=== PATIENT | male | born 1960 | race Caucasian/White ===

== ENCOUNTER 2017-10-17 02:05 | Emergency (ER) | payer MEDICAID ==
[~2017-10-17] VITALS: Ht 182.9 cm; Wt 74.4 kg
[2017-10-17 02:13] VITALS: BP 164/88
[2017-10-17] MEDS ORDERED: Albuterol/Ipratropium 3ml neb HHN ONE (02:30)
--- NOTE | 2017-10-17 04:23 | Emergency Room Report ---
History of Present Illness General Chief Complaint: Alcohol Intoxication Source: Patient, EMS Present Illness HPI Patient is a 57-year-old male brought in by EMS after increased alcohol use. Patient had reported increased pain to his left upper extremity. He denies any current complaints. The patient states he was drinking heavily earlier in day. He had prior history of multiple surgeries. The patient does not recall any recent trauma Allergies: Coded Allergies: No Known Allergies (Unverified , 10/17/17) Patient History Past Medical History: see triage record Reviewed Nursing Documentation: PMH: Agreed, PSxH: Agreed Review of Systems All Other Systems: negative except mentioned in HPI Physical Exam Vital Signs Date Time Temp Pulse Resp B/P (MAP) Pulse Ox O2 Delivery O2 Flow Rate FiO2 10/17/17 02:06 98.1 96 18 164/88 99 Room Air 98.1 10/17/17 02:40 21 Sp02 EP Interpretation: reviewed, normal General Appearance: normal inspection, well appearing, no apparent distress, alert, GCS 15 Head: atraumatic Eyes: bilateral eye PERRL, bilateral eye other - left eyelid bruising ENT: normal ENT inspection, hearing grossly normal, normal voice Neck: normal inspection, full range of motion, supple, no bony tend Respiratory: normal inspection, no respiratory distress, no retraction, wheezing Cardiovascular #1: regular rate, rhythm, no edema Gastrointestinal: normal inspection, normal bowel sounds, non tender, soft, no guarding, no hernia Genitourinary: no CVA tenderness Musculoskeletal: normal inspection, back normal, normal range of motion Neurologic: normal inspection, alert, oriented x3, responsive, 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 differential diagnosis included but was not limited to ischemic stroke, subarachnoid hemorrhage, hypoglycemia, spinal cord injury, neurodegenerative disorder, urinary tract infection, hypoxemia. CT the head read by radiology showed post surgical changes and chronic sinusitis without evident intracranial hemorrhage or CVA. The patient is advised to follow up with primary care doctor in 1-2 days. Patient is advised to return if any worsening condition or if any changes in status that are concerning. This report is dictated with Dragon director music software which may occasionally lead to discrepancies related to use of this software. Last Vital Signs Date Time Temp Pulse Resp B/P (MAP) Pulse Ox O2 Delivery O2 Flow Rate FiO2 10/17/17 03:11 130 18 98 Room Air 21 10/17/17 02:13 98.1 164/88 98.1 Status: improved Disposition: HOME, SELF-CARE Condition: Stable Referrals: NOT CHOSEN IPA/,REFERRING (PCP) Mil Richard Oct 17, 2017 04:23
[2017-10-17 04:50] VITALS: BP 99/58
[2017-10-17 06:12] VITALS: BP 133/78
[2017-10-17 07:55] VITALS: BP_SYST 128; BP_SYST 133; BP_DIAS 75; BP_DIAS 78
--- NOTE | 2017-10-17 09:41 | Diagnostic Imaging Report ---
Indication: Headache Technique: Contiguous 5 mm thick transaxial imaging of the head obtained in a Siemens Sensation [address] scanner. Soft tissue and bone windows generated. Automatic Exposure Control was utilized. Total Dose length Product (DLP): 1432.[address] Dose Index Volume (CTDIvol): 70.38 mGy Comparison: none Findings: There is moderate prominence of the ventricles, basal cisterns, and cerebral sulci consistent with atrophy. Moderate, nonspecific, white matter hypoattenuation is noted throughout the brain consistent with chronic small vessel disease. There is a right-sided large craniotomy noted. There is mild encephalomalacia involving portions of the right frontal temporal and parietal lobes. There is no midline shift, edema, acute hemorrhage, mass effect, or abnormal extra-axial fluid collections. Bones and extra osseous soft tissues are unremarkable. Impression: No acute intracranial bleed, mass effect or edema. Large right craniotomy Moderate atrophy of the brain. Evidence of chronic small vessel disease involving white matter tracts. [facility] has communicated the preliminary results to the Emergency Department. Their findings are largely concordant with this report. The CT scanner at [facility] is accredited by the [employer] and the scans are performed using dose optimization techniques as appropriate to a performed exam including Automatic Exposure control.
[2017-11-16] MEDS ORDERED: MULTIVITAMINS1 EAC2 ORAL (15:24)
== END 2017-10-17 07:55 | disposition home or self-care (01) ==
LOC: EDBD 02:05 → EMR 02:28
DX: F10.229 Alcohol dependence with intoxication, unspecified (principal); J32.9 Chronic sinusitis, unspecified
CPT/HCPCS: 70450; 94640; 94664; 99284; J7620

== ENCOUNTER 2017-11-16 15:28 | Inpatient (IN) | payer MEDICAID ==
[~2017-11-16] VITALS: Ht 182.9 cm; Wt 72.1 kg
[~2017-11-16 15:28] MED LIST: MULTIVITAMINS1 EAC2 ORAL
[2017-11-16] MEDS ORDERED: LORazepam Inj 2mg/ml 1ml IV ONE (15:45)
[2017-11-16] MEDS ORDERED: Pantoprazole Inj IVP ONE (15:45)
--- NOTE | 2017-11-16 15:54 | Emergency Room Report ---
History of Present Illness General Chief Complaint: Gastrointestinal Bleed Source: Patient, EMS Present Illness HPI Patient is a 57-year-old male brought in by EMS after increased hematemesis. Patient reports having increased cough. He states that he had been vomiting approximately 1 ft.. Reports having some bloody emesis.Patient was having prior history of cirrhosis. He has reported a dark blood. Allergies: Coded Allergies: CODEINE (Unverified Allergy, Unknown, 11/16/17) Patient History Past Medical History: see triage record Reviewed Nursing Documentation: PMH: Agreed; PSxH: Agreed Nursing Documentation-PMH Past Medical History: No History, Except For Hx Gastrointestinal Problems: Yes - CIRRHOSIS, HEP C. Physical Exam Vital Signs Date Time Temp Pulse Resp B/P (MAP) Pulse Ox O2 Delivery O2 Flow Rate FiO2 11/16/17 15:18 98.1 113 20 129/70 100 Room Air 98.1 Sp02 EP Interpretation: reviewed, normal General Appearance: normal inspection, well appearing, no apparent distress, alert, GCS 15, Chronically Ill Head: atraumatic ENT: normal ENT inspection, hearing grossly normal, normal voice Neck: normal inspection, full range of motion, supple, no bony tend Respiratory: normal inspection, lungs clear, normal breath sounds, no respiratory distress, no retraction, no wheezing Cardiovascular #1: regular rate, rhythm, no edema Gastrointestinal: normal inspection, normal bowel sounds, non tender, soft, no guarding, no hernia Genitourinary: no CVA tenderness Musculoskeletal: normal inspection, back normal, normal range of motion Neurologic: normal inspection, alert, oriented x3, responsive, speech normal Psychiatric: normal inspection, judgement/insight normal, mood/affect normal Skin: normal inspection, normal color, no rash Medical Decision Making Diagnostic Impression: Primary Impression: UGI bleed Additional Impressions: Anemia Alcoholic cirrhosis ER Course Patient is a 37-year-old male brought in by EMS after increased hematemesis. Differential diagnosis included was not limited to ulcer, variceal bleed, anemia , coagulopathy among others.Because of complexity of patient's case laboratory testing and imaging studies were ordered. The laboratory testing was notable for evidence of anemia. Patient was also noted to be somewhat Thrombocytopenic. The patient was started on IV acid blockers. The patient was given IV Ativan for probable alcohol withdrawal.Dr. Espana was contacted for inpatient management due to complexity of medical condition. The patient will require GI consult. The patient appears to have chronic alcohol abuse as well. Labs Test 11/16/17 16:05 White Blood Count 4.6 K/UL (4.8-10.8) Red Blood Count 3.00 M/UL (4.70-6.10) Hemoglobin 8.2 G/DL (14.2-18.0) Hematocrit 26.3 % (42.0-52.0) Mean Corpuscular Volume 88 FL (80-99) Mean Corpuscular Hemoglobin 27.5 PG (27.0-31.0) Mean Corpuscular Hemoglobin Concent 31.3 G/DL (32.0-36.0) Red Cell Distribution Width 20.2 % (11.6-14.8) Platelet Count 88 K/UL (150-450) Mean Platelet Volume 8.9 FL (6.5-10.1) Neutrophils (%) (Auto) % (45.0-75.0) Lymphocytes (%) (Auto) % (20.0-45.0) Monocytes (%) (Auto) % (1.0-10.0) Eosinophils (%) (Auto) % (0.0-3.0) Basophils (%) (Auto) % (0.0-2.0) Differential Total Cells Counted 100 Neutrophils % (Manual) 61 % (45-75) Lymphocytes % (Manual) 31 % (20-45) Monocytes % (Manual) 8 % (1-10) Eosinophils % (Manual) 0 % (0-3) Basophils % (Manual) 0 % (0-2) Band Neutrophils 0 % (0-8) Platelet Estimate Decreased Platelet Morphology Normal Hypochromasia 2+ Anisocytosis 1+ Microcytosis 1+ Prothrombin Time 14.1 SEC (9.30-11.50) Prothromb Time International Ratio 1.3 (0.9-1.1) Activated Partial Thromboplast Time 33 SEC (23-33) Sodium Level 142 MMOL/L (136-145) Potassium Level 3.9 MMOL/L (3.5-5.1) Chloride Level 106 MMOL/L (98-107) Carbon Dioxide Level 26 MMOL/L (21-32) Anion Gap 10 mmol/L (5-15) Blood Urea Nitrogen 17 mg/dL (7-18) Creatinine 0.8 MG/DL (0.55-1.30) Estimat Glomerular Filtration Rate > 60 mL/min (>60) Glucose Level 112 MG/DL (74-106) Calcium Level 7.7 MG/DL (8.5-10.1) Total Bilirubin 0.9 MG/DL (0.2-1.0) Aspartate Amino Transf (AST/SGOT) 153 U/L (15-37) Alanine Aminotransferase (ALT/SGPT) 60 U/L (12-78) Alkaline Phosphatase 104 U/L (46-116) Total Protein 7.1 G/DL (6.4-8.2) Albumin 2.7 G/DL (3.4-5.0) Globulin 4.4 g/dL Albumin/Globulin Ratio 0.6 (1.0-2.7) Last Vital Signs Date Time Temp Pulse Resp B/P (MAP) Pulse Ox O2 Delivery O2 Flow Rate FiO2 11/16/17 15:18 98.1 113 20 129/70 100 Room Air 98.1 Status: unchanged Disposition: ADMITTED INPATIENT Condition: Serious Mil Richard Nov 16, 2017 15:54
[2017-11-16 16:05] VITALS: BP 115/76
[2017-11-16 16:27] LABS: HEMATOCRIT 26.3 % (42.0-52.0); HEMOGLOBIN 8.2 G/DL (14.2-18.0); MEAN CORPUSCULAR VOLUME 88 FL (80-99); PLATELET COUNT 88 K/UL (150-450); RED CELL DISTRIBUTION WIDTH 20.2 % (11.6-14.8); WHITE BLOOD COUNT 4.6 K/UL (4.8-10.8)
[2017-11-16 16:31] LABS: ANION GAP 10 mmol/L (5-15); BLOOD UREA NITROGEN 17 mg/dL (7-18); CALCIUM 7.7 MG/DL (8.5-10.1); CARBON DIOXIDE 26 MMOL/L (21-32); CHLORIDE 106 MMOL/L (98-107); CREATININE 0.8 MG/DL (0.55-1.30); INR 1.3 (0.9-1.1); POTASSIUM 3.9 MMOL/L (3.5-5.1); SODIUM 142 MMOL/L (136-145)
[2017-11-16 16:36] LABS: ALANINE AMINOTRANSFERASE 60 U/L (12-78); ALBUMIN 2.7 G/DL (3.4-5.0); ALBUMIN/GLOBULIN RATIO 0.6 (1.0-2.7); ALKALINE PHOSPHATASE 104 U/L (46-116); ASPARTATE AMINO TRANSFERASE 153 U/L (15-37); BILIRUBIN,TOTAL 0.9 MG/DL (0.2-1.0)
[2017-11-16] MEDS ORDERED: SandoSTATIN 50mcg Inj IVP ONE (17:30)
[2017-11-16 18:10] VITALS: BP 117/71
[2017-11-16] MEDS ORDERED: Nitroglycerin Subl 0.4mg tab SL PRN (19:45)
[2017-11-16] MEDS ORDERED: Mylanta II UD 30ml ORAL PRN (19:45)
[2017-11-16] MEDS ORDERED: Miralax 17gm pkt ORAL PRN (19:45)
[2017-11-16 21:55] VITALS: BP 122/60
--- NOTE | 2017-11-16 22:55 | History and Physical ---
History of Present Illness General Date patient seen: Nov 16, 2017 Reason for Hospitalization: Gastrointestinal Bleed Present Illness HPI 57-year-old male with hx of ETOH liver disease brought in by EMS with CC of hematemesis. Patient reports having increased cough. He has reported a dark bloody stool. Pt was found to be anemic and admitted for telemetry for further management. Allergies: Coded Allergies: CODEINE (Unverified Allergy, Unknown, 11/16/17) Medication History Scheduled Multivitamins* (Multivitamins*), 1 TAB ORAL DAILY, (Reported) Patient History Healthcare decision maker Resuscitation status Advanced Directive on File Past Medical/Surgical History Past Medical/Surgical History: (1) Alcoholic cirrhosis Review of Systems All Other Systems: negative except mentioned in HPI Physical Exam General Appearance: cachetic Lines, tubes and drains: peripheral HEENT: normocephalic, atraumatic Neck: non-tender, normal alignment Respiratory/Chest: chest wall non-tender, lungs clear Breasts: no masses Cardiovascular/Chest: normal rate Abdomen: normal bowel sounds, non tender Genitourinary/Rectal: normal genital exam Extremities: normal range of motion, non-tender Skin Exam: normal pigmentation 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 Lymphatic: anterior cervical Last 24 Hour Vital Signs Date Time Temp Pulse Resp B/P (MAP) Pulse Ox O2 Delivery O2 Flow Rate FiO2 11/16/17 21:55 74 22 122/60 94 Room Air 11/16/17 18:10 98.5 95 20 117/71 95 Room Air 98.5 11/16/17 16:05 98.1 105 18 115/76 100 Room Air 98.1 11/16/17 15:18 98.1 113 20 129/70 100 Room Air 98.1 Laboratory Tests Test 11/16/17 16:05 White Blood Count 4.6 K/UL (4.8-10.8) L Red Blood Count 3.00 M/UL (4.70-6.10) L Hemoglobin 8.2 G/DL (14.2-18.0) L Hematocrit 26.3 % (42.0-52.0) L Mean Corpuscular Volume 88 FL (80-99) Mean Corpuscular Hemoglobin 27.5 PG (27.0-31.0) Mean Corpuscular Hemoglobin Concent 31.3 G/DL (32.0-36.0) L Red Cell Distribution Width 20.2 % (11.6-14.8) H Platelet Count 88 K/UL (150-450) L Mean Platelet Volume 8.9 FL (6.5-10.1) Neutrophils (%) (Auto) % (45.0-75.0) Lymphocytes (%) (Auto) % (20.0-45.0) Monocytes (%) (Auto) % (1.0-10.0) Eosinophils (%) (Auto) % (0.0-3.0) Basophils (%) (Auto) % (0.0-2.0) Differential Total Cells Counted 100 Neutrophils % (Manual) 61 % (45-75) Lymphocytes % (Manual) 31 % (20-45) Monocytes % (Manual) 8 % (1-10) Eosinophils % (Manual) 0 % (0-3) Basophils % (Manual) 0 % (0-2) Band Neutrophils 0 % (0-8) Platelet Estimate Decreased L Platelet Morphology Normal Hypochromasia 2+ Anisocytosis 1+ Microcytosis 1+ Prothrombin Time 14.1 SEC (9.30-11.50) H Prothromb Time International Ratio 1.3 (0.9-1.1) H Activated Partial Thromboplast Time 33 SEC (23-33) Sodium Level 142 MMOL/L (136-145) Potassium Level 3.9 MMOL/L (3.5-5.1) Chloride Level 106 MMOL/L (98-107) Carbon Dioxide Level 26 MMOL/L (21-32) Anion Gap 10 mmol/L (5-15) Blood Urea Nitrogen 17 mg/dL (7-18) Creatinine 0.8 MG/DL (0.55-1.30) Estimat Glomerular Filtration Rate > 60 mL/min (>60) Glucose Level 112 MG/DL (74-106) H Calcium Level 7.7 MG/DL (8.5-10.1) L Total Bilirubin 0.9 MG/DL (0.2-1.0) Aspartate Amino Transf (AST/SGOT) 153 U/L (15-37) H Alanine Aminotransferase (ALT/SGPT) 60 U/L (12-78) Alkaline Phosphatase 104 U/L (46-116) Total Protein 7.1 G/DL (6.4-8.2) Albumin 2.7 G/DL (3.4-5.0) L Globulin 4.4 g/dL Albumin/Globulin Ratio 0.6 (1.0-2.7) L Height (Feet): 5 Height (Inches): 5.00 Weight (Pounds): 165 Medications Current Medications Medications (Trade) Dose Ordered Sig/Lazaro Route PRN Reason Start Time Stop Time Status Last Admin Dose Admin Acetaminophen (Tylenol) 650 mg Q4H PRN ORAL fever 11/16/17 19:45 12/16/17 19:44 Al Hydroxide/Mg Hydroxide (Mylanta II) 30 ml Q6H PRN ORAL dyspepsia 11/16/17 19:45 12/16/17 19:44 Dextrose (Dextrose 50%) STAT PRN IV Hypoglycemia 11/16/17 19:45 12/16/17 19:44 Dextrose/Sodium Chloride 1,000 ml @ 100 mls/hr Q10H IV 11/16/17 19:36 12/16/17 19:35 Diphenhydramine HCl (Benadryl) 25 mg Q6H PRN ORAL Itching/Pruritis 11/16/17 19:45 12/16/17 19:44 Nitroglycerin (Ntg) 0.4 mg Q5M X 3 DOSES PRN SL Prn Chest Pain 11/16/17 19:45 12/16/17 19:44 Ondansetron HCl (Zofran) 4 mg Q6H PRN IVP Nausea & Vomiting 11/16/17 19:45 12/16/17 19:44 Phytonadione 10 mg/Dextrose 56 ml @ 110 mls/hr ONCE ONCE IVPB 11/16/17 23:00 11/16/17 23:30 Polyethylene Glycol (Miralax) 17 gm HSPRN PRN ORAL Constipation 11/16/17 19:45 12/16/17 19:44 Temazepam (Restoril) 15 mg HSPRN PRN ORAL Insomnia 11/16/17 19:45 11/23/17 19:44 Assessment/Plan Problem List: (1) UGI bleed ICD Codes: K92.2 - Gastrointestinal hemorrhage, unspecified SNOMED: 88200637 (2) Alcoholic cirrhosis ICD Codes: K70.30 - Alcoholic cirrhosis of liver without ascites SNOMED: 531020857 (3) Anemia ICD Codes: D64.9 - Anemia, unspecified SNOMED: 632852410 Assessment/Plan npo iv fluids prbc prn watch pt inr GI evaluation avoid etoh. Lisa Espana MD Nov 16, 2017 22:55
[2017-11-16 23:00] VITALS: BP 128/68
[2017-11-16] MEDS ORDERED: Phytonadione 10 MG in D5W 55 ML IVPB ONE (23:00)
[2017-11-17] VITALS (10 sets, daily range): BP systolic 136–157; BP diastolic 56–90
[2017-11-17] MEDS ORDERED: Octreotide Acetate 500 MCG in Sodium Chloride 500ML 499 ML IV SCH (00:45)
[2017-11-17] MEDS: D5NS 1,000 ML IV SCH ×3 (01:15→14:13)
[2017-11-17] MEDS ORDERED: Phytonadione 10 mg/mL 1ml amp ONE (01:32)
[2017-11-17] MEDS: Pantoprazole Inj IVP SCH ×3 (01:51→21:14)
[2017-11-17] MEDS ORDERED: OCTREOTIDE ACETATE IV SCH (02:30)
[2017-11-17] MEDS ORDERED: SODIUM CHLORIDE IV SCH (02:30)
[2017-11-17] MEDS: Sandostatin 500mcg in NS 500ml IV SCH ×3 (02:53→23:15)
[2017-11-17] MEDS ORDERED: Midazolam 2mg/2ml Inj IVP PRN ×2 (07:00→10:45)
[2017-11-17] MEDS ORDERED: fentaNYL 100 mcg/2 mL IV PRN ×2 (07:00→10:45)
[2017-11-17] MEDS ORDERED: Atropine Inj 1mg/10ml Syr IV PRN ×2 (07:00→10:45)
[2017-11-17] MEDS ORDERED: DiphenhydrAMINE 50mg/ml Inj IVP PRN ×2 (07:00→10:45)
[2017-11-17 09:24] LABS: HEMATOCRIT 26.5 % (42.0-52.0); HEMOGLOBIN 8.2 G/DL (14.2-18.0); MEAN CORPUSCULAR VOLUME 88 FL (80-99); PLATELET COUNT 57 K/UL (150-450); RED CELL DISTRIBUTION WIDTH 20.2 % (11.6-14.8); WHITE BLOOD COUNT 4.3 K/UL (4.8-10.8)
[2017-11-17 09:30] LABS: INR 1.3 (0.9-1.1)
[2017-11-17] MEDS ORDERED: Phytonadione 1 MG in D5W 55 ML IVPB ONE (09:30)
[2017-11-17 09:54] LABS: ALANINE AMINOTRANSFERASE 64 U/L (12-78); ALBUMIN 2.7 G/DL (3.4-5.0); ALBUMIN/GLOBULIN RATIO 0.6 (1.0-2.7); ALKALINE PHOSPHATASE 87 U/L (46-116); AMYLASE 78 U/L (25-115); ANION GAP 5 mmol/L (5-15); ASPARTATE AMINO TRANSFERASE 167 U/L (15-37); BILIRUBIN,DIRECT 0.8 MG/DL (0.0-0.3); BILIRUBIN,TOTAL 1.4 MG/DL (0.2-1.0); BLOOD UREA NITROGEN 12 mg/dL (7-18); CALCIUM 7.4 MG/DL (8.5-10.1); CARBON DIOXIDE 29 MMOL/L (21-32); CHLORIDE 107 MMOL/L (98-107); CREATININE 0.9 MG/DL (0.55-1.30); SODIUM 141 MMOL/L (136-145)
--- NOTE | 2017-11-17 10:31 | Anethesia Preoperative Eval ---
Anesthesia Pre-op PMH/ROS General Date of Evaluation: Nov 17, 2017 Time of Evaluation: 10:28 Anesthesiologist: devorah ASA Score: ASA 3 Mallampati Score Class I : Soft palate, uvula, fauces, pillars visible Class II: Soft palate, uvula, fauces visible Class III: Soft palate, base of uvula visible Class IV: Only hard plate visible Mallampati Classification: Class II Surgeon: marlen Diagnosis: ugib Surgical Procedure: egd Anesthesia History: none Social History: current smoker, alcohol use Family History: no anesthesia problems Allergies: Coded Allergies: CODEINE (Unverified Allergy, Unknown, 11/16/17) Medications: see eMAR Past Medical History Gastrointestinal/Genitourinary: Reports: other - ugib, etoh cirrhosis, hep c, Neurologic/Psychiatric: Reports: CVA Hematology/Immune: Reports: anemia, other - mrsa Musculoskeletal/Integumentary: Reports: other - ble fractures/prosthesis Anesthesia Pre-op Phys. Exam Physician Exam Last Vital Signs Date Time Temp Pulse Resp B/P (MAP) Pulse Ox O2 Delivery O2 Flow Rate FiO2 11/17/17 08:00 98.2 97 20 157/87 97 Room Air 98.2 Constitutional: NAD Neurologic: CN 2-12 intact Cardiovascular: RRR Respiratory: CTA Gastrointestinal: S/NT/ND Airway Exam Mallampati Score: Class II MO: full Neck: supple TMD: 2fb ROM: limited Anesthesia Pre-op A/P Labs Hematology Test 11/16/17 16:05 11/17/17 09:00 White Blood Count 4.6 K/UL (4.8-10.8) L 4.3 K/UL (4.8-10.8) L Red Blood Count 3.00 M/UL (4.70-6.10) L 3.00 M/UL (4.70-6.10) L Hemoglobin 8.2 G/DL (14.2-18.0) L 8.2 G/DL (14.2-18.0) L Hematocrit 26.3 % (42.0-52.0) L 26.5 % (42.0-52.0) L Mean Corpuscular Volume 88 FL (80-99) 88 FL (80-99) Mean Corpuscular Hemoglobin 27.5 PG (27.0-31.0) 27.3 PG (27.0-31.0) Mean Corpuscular Hemoglobin Concent 31.3 G/DL (32.0-36.0) L 30.9 G/DL (32.0-36.0) L Red Cell Distribution Width 20.2 % (11.6-14.8) H 20.2 % (11.6-14.8) H Platelet Count 88 K/UL (150-450) L 57 K/UL (150-450) L Mean Platelet Volume 8.9 FL (6.5-10.1) 8.6 FL (6.5-10.1) Neutrophils (%) (Auto) % (45.0-75.0) % (45.0-75.0) Lymphocytes (%) (Auto) % (20.0-45.0) % (20.0-45.0) Monocytes (%) (Auto) % (1.0-10.0) % (1.0-10.0) Eosinophils (%) (Auto) % (0.0-3.0) % (0.0-3.0) Basophils (%) (Auto) % (0.0-2.0) % (0.0-2.0) Differential Total Cells Counted 100 100 Neutrophils % (Manual) 61 % (45-75) 65 % (45-75) Lymphocytes % (Manual) 31 % (20-45) 23 % (20-45) Monocytes % (Manual) 8 % (1-10) 12 % (1-10) H Eosinophils % (Manual) 0 % (0-3) 0 % (0-3) Basophils % (Manual) 0 % (0-2) 0 % (0-2) Band Neutrophils 0 % (0-8) 0 % (0-8) Platelet Estimate Decreased L Decreased L Platelet Morphology Normal Normal Hypochromasia 2+ 1+ Anisocytosis 1+ 2+ Microcytosis 1+ Polychromasia 1+ Coagulation Test 11/16/17 16:05 11/17/17 09:00 Prothrombin Time 14.1 SEC (9.30-11.50) H 13.3 SEC (9.30-11.50) H Prothromb Time International Ratio 1.3 (0.9-1.1) H 1.3 (0.9-1.1) H Activated Partial Thromboplast Time 33 SEC (23-33) 34 SEC (23-33) H Chemistry Test 11/16/17 16:05 11/17/17 09:00 Sodium Level 142 MMOL/L (136-145) 141 MMOL/L (136-145) Potassium Level 3.9 MMOL/L (3.5-5.1) 4.0 MMOL/L (3.5-5.1) Chloride Level 106 MMOL/L (98-107) 107 MMOL/L (98-107) Carbon Dioxide Level 26 MMOL/L (21-32) 29 MMOL/L (21-32) Anion Gap 10 mmol/L (5-15) 5 mmol/L (5-15) Blood Urea Nitrogen 17 mg/dL (7-18) 12 mg/dL (7-18) Creatinine 0.8 MG/DL (0.55-1.30) 0.9 MG/DL (0.55-1.30) Estimat Glomerular Filtration Rate > 60 mL/min (>60) > 60 mL/min (>60) Glucose Level 112 MG/DL (74-106) H 128 MG/DL (74-106) H Calcium Level 7.7 MG/DL (8.5-10.1) L 7.4 MG/DL (8.5-10.1) L Total Bilirubin 0.9 MG/DL (0.2-1.0) 1.4 MG/DL (0.2-1.0) H Aspartate Amino Transf (AST/SGOT) 153 U/L (15-37) H 167 U/L (15-37) H Alanine Aminotransferase (ALT/SGPT) 60 U/L (12-78) 64 U/L (12-78) Alkaline Phosphatase 104 U/L (46-116) 87 U/L (46-116) Total Protein 7.1 G/DL (6.4-8.2) 6.9 G/DL (6.4-8.2) Albumin 2.7 G/DL (3.4-5.0) L 2.7 G/DL (3.4-5.0) L Globulin 4.4 g/dL 4.2 g/dL Albumin/Globulin Ratio 0.6 (1.0-2.7) L 0.6 (1.0-2.7) L Direct Bilirubin 0.8 MG/DL (0.0-0.3) H Amylase Level 78 U/L (25-115) Lipase 131 U/L (73-393) Risk Assessment & Plan Assessment: asa3 Plan: mac Status Change Before Surgery: No Pre-Antibiotics Drug: SHERRILL Yeung Nov 17, 2017 10:31
--- NOTE | 2017-11-17 11:51 | Pulmonology Progress Note ---
Assessment/Plan Problems: (1) UGI bleed (2) Alcoholic cirrhosis (3) Anemia Assessment/Plan h/h stable check electrolytes for EGD today prbc prn iv fluids check electrolytes. Subjective ROS Limited/Unobtainable: No Constitutional: Reports: no symptoms HEENT: Repors: no symptoms Gastrointestinal/Abdominal: Reports: no symptoms Allergies: Coded Allergies: CODEINE (Unverified Allergy, Unknown, 11/16/17) Objective Last 24 Hour Vital Signs Date Time Temp Pulse Resp B/P (MAP) Pulse Ox O2 Delivery O2 Flow Rate FiO2 11/17/17 08:00 98.2 97 20 157/87 97 Room Air 98.2 11/17/17 06:15 97.8 108 20 136/68 96 Room Air 97.8 11/17/17 03:40 85 11/17/17 00:00 97 11/16/17 23:00 98.5 82 15 128/68 98 Room Air 98.5 11/16/17 23:00 82 15 128/68 98 Room Air 11/16/17 21:55 74 22 122/60 94 Room Air 11/16/17 18:10 98.5 95 20 117/71 95 Room Air 98.5 11/16/17 16:05 98.1 105 18 115/76 100 Room Air 98.1 11/16/17 15:18 98.1 113 20 129/70 100 Room Air 98.1 Intake and Output 11/16/17 11/17/17 19:00 07:00 Intake Total 0 ml 431.6 ml Balance 0 ml 431.6 ml Intake Oral 0 ml IV Total 431.6 ml # Voids 3 Objective General Appearance: cachetic Lines, tubes and drains: peripheral HEENT: normocephalic, atraumatic Neck: non-tender, normal alignment Respiratory/Chest: chest wall non-tender, lungs clear Breasts: no masses Cardiovascular/Chest: normal rate Abdomen: normal bowel sounds, non tender Genitourinary/Rectal: normal genital exam Extremities: normal range of motion, non-tender Skin Exam: normal pigmentation 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 Lymphatic: anterior cervical Laboratory Tests 11/16/17 16:05: White Blood Count 4.6L, Red Blood Count 3.00L, Hemoglobin 8.2L, Hematocrit 26.3L , Mean Corpuscular Volume 88, Mean Corpuscular Hemoglobin 27.5, Mean Corpuscular Hemoglobin Concent 31.3L, Red Cell Distribution Width 20.2H, Platelet Count 88L, Mean Platelet Volume 8.9, Neutrophils (%) (Auto) , Lymphocytes (%) (Auto) , Monocytes (%) (Auto) , Eosinophils (%) (Auto) , Basophils (%) (Auto) , Differential Total Cells Counted 100, Neutrophils % ( Manual) 61, Lymphocytes % (Manual) 31, Monocytes % (Manual) 8, Eosinophils % ( Manual) 0, Basophils % (Manual) 0, Band Neutrophils 0, Platelet Estimate DecreasedL, Platelet Morphology Normal, Hypochromasia 2+, Anisocytosis 1+, Microcytosis 1+, Prothrombin Time 14.1H, Prothromb Time International Ratio 1.3H , Activated Partial Thromboplast Time 33, Sodium Level 142, Potassium Level 3.9 , Chloride Level 106, Carbon Dioxide Level 26, Anion Gap 10, Blood Urea Nitrogen 17, Creatinine 0.8, Estimat Glomerular Filtration Rate > 60, Glucose Level 112H, Calcium Level 7.7L, Total Bilirubin 0.9, Aspartate Amino Transf (AST /SGOT) 153H, Alanine Aminotransferase (ALT/SGPT) 60, Alkaline Phosphatase 104, Total Protein 7.1, Albumin 2.7L, Globulin 4.4, Albumin/Globulin Ratio 0.6L 11/17/17 09:00: White Blood Count 4.3L, Red Blood Count 3.00L, Hemoglobin 8.2L, Hematocrit 26.5L , Mean Corpuscular Volume 88, Mean Corpuscular Hemoglobin 27.3, Mean Corpuscular Hemoglobin Concent 30.9L, Red Cell Distribution Width 20.2H, Platelet Count 57L, Mean Platelet Volume 8.6, Neutrophils (%) (Auto) , Lymphocytes (%) (Auto) , Monocytes (%) (Auto) , Eosinophils (%) (Auto) , Basophils (%) (Auto) , Differential Total Cells Counted 100, Neutrophils % ( Manual) 65, Lymphocytes % (Manual) 23, Monocytes % (Manual) 12H, Eosinophils % ( Manual) 0, Basophils % (Manual) 0, Band Neutrophils 0, Platelet Estimate DecreasedL, Platelet Morphology Normal, Hypochromasia 1+, Anisocytosis 2+, Prothrombin Time 13.3H, Prothromb Time International Ratio 1.3H, Activated Partial Thromboplast Time 34H, Sodium Level 141, Potassium Level 4.0, Chloride Level 107, Carbon Dioxide Level 29, Anion Gap 5, Blood Urea Nitrogen 12, Creatinine 0.9, Estimat Glomerular Filtration Rate > 60, Glucose Level 128H, Calcium Level 7.4L, Total Bilirubin 1.4H, Aspartate Amino Transf (AST/SGOT) 167H , Alanine Aminotransferase (ALT/SGPT) 64, Alkaline Phosphatase 87, Total Protein 6.9, Albumin 2.7L, Globulin 4.2, Albumin/Globulin Ratio 0.6L, Polychromasia 1+, Direct Bilirubin 0.8H, Amylase Level 78, Lipase 131 Current Medications Medications (Trade) Dose Ordered Sig/Lazaro Route PRN Reason Start Time Stop Time Status Last Admin Dose Admin Acetaminophen (Tylenol) 650 mg Q4H PRN ORAL fever 11/16/17 19:45 12/16/17 19:44 Al Hydroxide/Mg Hydroxide (Mylanta II) 30 ml Q6H PRN ORAL dyspepsia 11/16/17 19:45 12/16/17 19:44 Al Hydroxide/Mg Hydroxide (Mylanta) 15 ml Q1H PRN ORAL gi upset 11/17/17 07:00 11/17/17 13:00 Atropine Sulfate (Atropine) 0.5 mg Q5M PRN IV bpm less than 45 11/17/17 07:00 11/17/17 13:00 Dextrose (Dextrose 50%) STAT PRN IV Hypoglycemia 11/16/17 19:45 12/16/17 19:44 Dextrose/Sodium Chloride 1,000 ml @ 100 mls/hr Q10H IV 11/16/17 19:36 12/16/17 19:35 11/17/17 01:15 Diphenhydramine HCl (Benadryl) 25 mg Q15M PRN IVP Itching 11/17/17 07:00 11/17/17 13:00 Diphenhydramine HCl (Benadryl) 25 mg Q6H PRN ORAL Itching/Pruritis 11/16/17 19:45 12/16/17 19:44 Fentanyl Citrate (Sublimaze 100 mcg/2 mL) 25 mcg Q10M PRN IV Moderate Pain (Pain Scale 4-6) 11/17/17 10:45 11/17/17 16:00 Hydralazine HCl (Apresoline) 5 mg Q30M PRN IV SBP>160 /DBP>90 11/17/17 07:00 11/17/17 13:00 Midazolam HCl (Versed 2mg/2ml vial) 1 mg Q15M PRN IVP For Anxiety 11/17/17 10:45 11/17/17 16:00 Nitroglycerin (Ntg) 0.4 mg Q5M X 3 DOSES PRN SL Prn Chest Pain 11/16/17 19:45 12/16/17 19:44 Octreotide Acetate 500 mcg/ Sodium Chloride 500 ml @ 50 mls/hr Q10H IV 11/17/17 03:00 12/17/17 02:59 11/17/17 02:53 Ondansetron HCl (Zofran) 4 mg Q1H PRN IVP Nausea & Vomiting 11/17/17 10:45 11/17/17 16:00 Ondansetron HCl (Zofran) 4 mg Q6H PRN IVP Nausea & Vomiting 11/16/17 19:45 12/16/17 19:44 Pantoprazole (Protonix) 40 mg EVERY 12 HOURS IVP 11/17/17 00:45 12/17/17 00:44 11/17/17 08:32 Polyethylene Glycol (Miralax) 17 gm HSPRN PRN ORAL Constipation 11/16/17 19:45 12/16/17 19:44 Sodium Chloride 1,000 ml @ 10 mls/hr Q24H IVLG 11/17/17 10:33 11/17/17 12:32 Temazepam (Restoril) 15 mg HSPRN PRN ORAL Insomnia 11/16/17 19:45 11/23/17 19:44 Lisa Espana MD Nov 17, 2017 11:51
--- NOTE | 2017-11-17 11:51 | Pre-Procedure Note/Attestation ---
Pre-Procedure Note/Attestation Complete Prior to Procedure Planned Procedure: not applicable Procedure Narrative: egd Indications for Procedure Pre-Operative Diagnosis: gib Attestation I attest that I discussed the nature of the procedure; its benefits; risks and complications; and alternatives (and the risks and benefits of such alternatives ), prior to the procedure, with the patient (or the patient's legal sales solutions representative). I attest that, if there was a reasonable possibility of needing a blood transfusion, the patient (or the patient's legal sales solutions representative) was given the [facility] standardized written summary, pursuant to the Stefano Cynthia Blood Safety Act ([place] Health and Safety Code # 1645, as amended). I attest that I re-evaluated the patient just prior to the surgery and that there has been no change in the patient's H&P, except as documented below: MATTHEW MARTELL Nov 17, 2017 11:51
[2017-11-17] MEDS ORDERED: NS 500ML IV ONE (12:05)
--- NOTE | 2017-11-17 12:11 | Endoscopy Procedure Note ---
Endoscopy Procedure Note General Indication for Procedure: GIB Procedures Performed: EGD Operative Findings/Diagnosis: VARICES Specimen: none Pt Tolerated Procedure Well: Yes Estimated Blood Loss: none Anesthesia Anesthesiologist: IRLANDA Anesthesia: MAC Inserted Devices Implant(s) used?: No GI Core Measures 50 yrs or older w/o bx or poly: Not Applicable 10yrs. F/U not recommended: Not Applicable MATTHEW MARTELL Nov 17, 2017 12:11
--- NOTE | 2017-11-17 12:40 | Immediate Post-Op Evaluation ---
Immediate Post-Op Evalulation Immediate Post-Op Evalulation Procedure: egd w/ banding Date of Evaluation: Nov 17, 2017 Time of Evaluation: 12:38 IV Fluids: 250ml Blood Products: none Estimated Blood Loss: negligible Blood Pressure Systolic: 142 Blood Pressure Diastolic: 56 Pulse Rate: 93 Respiratory Rate: 18 O2 Sat by Pulse Oximetry: 98 Temperature (Fahrenheit): 98.9 Pain Score (1-10): 0 Nausea: No Vomiting: No Complications none Patient Status: awake, reacts, patent Hydration Status: adequate Drug: cefoxitin 1gm Given Within 1 Hr of Incision: Yes Time Given: 12:12 SHERRILL FOURNIER Nov 17, 2017 12:40
--- NOTE | 2017-11-17 12:44 | 48 Hour Post Anesthesia Eval ---
Post Anesthesia Evaluation Procedure: egd w/ banding Date of Evaluation: Nov 17, 2017 Time of Evaluation: 12:41 Blood Pressure Systolic: 156 0: 60 Pulse Rate: 90 Respiratory Rate: 18 Temperature (Fahrenheit): 98.9 O2 Sat by Pulse Oximetry: 99 Airway: patent Nausea: No Vomiting: No Pain Intensity: 0 Hydration Status: adequate Cardiopulmonary Status: stable Mental Status/LOC: patient returned to baseline Post-Anesthesia Complications: none Follow-up care needed: N/A SHERRILL FOURNIER Nov 17, 2017 12:44
[2017-11-17] MEDS ORDERED: NS 500ML ONE (14:08)
[2017-11-17] MEDS: cefTRIAXone 1 GM in D5W 110 ML IVPB SCH (14:08)
[2017-11-17] MEDS ORDERED: D5NS 1000ml IV ONE (14:08)
--- NOTE | 2017-11-17 15:58 | Diagnostic Imaging Report ---
Indication: Abdominal pain, abnormal liver function tests, elevated lipase Technique: Niño-scale and duplex images of the upper abdomen were obtained Comparison: none Findings: There is ascites fluid Gallbladder demonstrates small stones and sludge. Gallbladder wall is thickened and edematous. Sonographic Rice sign is reported as positive by the technologist. Common bile duct measures 5 mm in diameter. No intrahepatic biliary ductal dilatation. Liver demonstrates coarsened echogenicity and surface micronodularity. No focal abnormality Portal vein and hepatic veins are patent. Pancreas is unremarkable. Spleen is borderline enlarged, measuring 13 cm long axis dimension. Left kidney measures 10.5 cm in length. Right kidney measures 11 cm length. Both kidneys demonstrate normal echogenicity. There is no hydronephrosis. Left kidney demonstrates a 1 cm cyst in the upper pole sinus . Abdominal aorta is partially obscured by bowel gas, visualized portions are non-aneurysmal . Impression: Evidence of hepatic cirrhosis Ascites, likely related to the above Cholelithiasis and gallbladder sludge. Gallbladder wall thickening and edema is likely related to the hepatic abnormality. However, given the finding of positive sonographic Rice's sign, the possibility of acute cholecystitis should also be considered. Consider nuclear medicine hepatobiliary scanning for further evaluation if there is high clinical suspicion Negative for dilated ducts Borderline splenomegaly Incidental finding left upper pole renal parapelvic cyst Note suboptimal visualization of the abdominal aorta
--- NOTE | 2017-11-17 17:40 | Cardiology Report ---
APPROVED REPORT EKG Measurement Heart [id number] Normal sinus rhythm Cannot rule out Anterior infarct, age undetermined Abnormal ECG
--- NOTE | 2017-11-17 17:45 | Procedure Note ---
DATE OF PROCEDURE: 11/17/2017 SURGEON: Lazaro Vallejo M.D. PROCEDURE: Upper endoscopy with banding. ANESTHESIA: Per Dr. Torres. INSTRUMENT: Olympus adult flexible upper endoscope. INDICATION: Upper GI bleeding. The procedure, risks, benefits, and possible consequences, including hemorrhage, aspiration, perforation and infection, and alternative treatments, were explained to the patient/legal guardian by Dr. Lazaro Vallejo and the patient/legal guardian understood and accepted these risks. DESCRIPTION OF PROCEDURE: After informed consent was obtained and the the patient was adequately sedated, Olympus upper endoscope was advanced from mouth into the second portion of the duodenum and retroflexion was performed in the stomach. The patient has evidence of columns of grade 4 distal esophageal varices, one of them in the bleeding. The patient also has evidence of severe portal hypertensive gastropathy. Then, we removed the scope. Banding device was placed. We introduced the scope back again into the esophagus starting banding at the GE junction. We placed a total of 6 bands in the distal esophagus. The patient tolerated the procedure very well without any complication. SUMMARY OF FINDINGS: 1. Esophageal varices, status post banding x6. 2. Portal hypertensive gastropathy. RECOMMENDATIONS: Keep the patient NPO for today. Start antibiotics ceftriaxone 1 g daily for preventing SBP. The patient received a dose of antibiotics prior to starting this procedure. Monitor hemoglobin and hematocrit. Transfuse as needed. Correct the coagulopathy. Abdominal ultrasound. Alpha-fetoprotein. We will follow. Lazaro Vallejo M.D. DR: JOSE C JOB#: [id number] CC:
[2017-11-18] VITALS: BP 147/86
[2017-11-18] MEDS: D5NS 1,000 ML IV SCH ×2 (01:40→12:20)
[2017-11-18 04:00] VITALS: BP 150/95
[2017-11-18 07:56] LABS: HEMATOCRIT 27.8 % (42.0-52.0); HEMOGLOBIN 8.5 G/DL (14.2-18.0); MEAN CORPUSCULAR VOLUME 87 FL (80-99); PLATELET COUNT 65 K/UL (150-450); RED BLOOD COUNT 3.18 M/UL (4.70-6.10); RED CELL DISTRIBUTION WIDTH 19.4 % (11.6-14.8); WHITE BLOOD COUNT 3.2 K/UL (4.8-10.8)
[2017-11-18 08:08] LABS: INR 1.2 (0.9-1.1)
[2017-11-18 08:13] VITALS: BP 142/75
[2017-11-18 08:24] LABS: ALANINE AMINOTRANSFERASE 64 U/L (12-78); ALBUMIN 2.9 G/DL (3.4-5.0); ALBUMIN/GLOBULIN RATIO 0.6 (1.0-2.7); ALKALINE PHOSPHATASE 92 U/L (46-116); ANION GAP 7 mmol/L (5-15); ASPARTATE AMINO TRANSFERASE 155 U/L (15-37); BILIRUBIN,TOTAL 1.7 MG/DL (0.2-1.0); BLOOD UREA NITROGEN 8 mg/dL (7-18); CARBON DIOXIDE 28 MMOL/L (21-32); CHLORIDE 101 MMOL/L (98-107); CREATININE 0.9 MG/DL (0.55-1.30); PHOSPHORUS 2.6 MG/DL (2.5-4.9); POTASSIUM 3.8 MMOL/L (3.5-5.1); SODIUM 136 MMOL/L (136-145)
[2017-11-18 09:10] LABS: BILIRUBIN,DIRECT 0.7 MG/DL (0.0-0.3)
--- NOTE | 2017-11-18 09:11 | General Progress Note ---
Assessment/Plan Problem List: (1) Esophageal varices ICD Codes: I85.00 - Esophageal varices without bleeding SNOMED: 94933800 (2) Cholelithiasis ICD Codes: K80.20 - Calculus of gallbladder without cholecystitis without obstruction SNOMED: 227360127 (3) Anemia ICD Codes: D64.9 - Anemia, unspecified SNOMED: 318256772 (4) Alcoholic cirrhosis ICD Codes: K70.30 - Alcoholic cirrhosis of liver without ascites SNOMED: 975410822 (5) UGI bleed ICD Codes: K92.2 - Gastrointestinal hemorrhage, unspecified SNOMED: 36875859 Assessment/Plan start clears decrease octreotide start low dose propranolol and monitor for pulse and BP hold paracentesis or diuretics for now HIDA scan fu labs Subjective ROS Limited/Unobtainable: Yes Allergies: Coded Allergies: CODEINE (Unverified Allergy, Unknown, 11/16/17) Subjective wants to eat Objective Last 24 Hour Vital Signs Date Time Temp Pulse Resp B/P (MAP) Pulse Ox O2 Delivery O2 Flow Rate FiO2 11/18/17 08:13 97.9 77 20 142/75 96 Room Air 97.9 11/18/17 04:00 98.1 80 20 150/95 96 Room Air 98.1 80 11/18/17 04:00 73 11/18/17 00:00 97.9 80 18 147/86 94 Room Air 97.9 80 11/18/17 00:00 82 11/17/17 20:00 103 11/17/17 20:00 98.4 79 20 152/83 98 Room Air 98.4 79 11/17/17 16:00 76 11/17/17 15:41 97.6 73 21 153/86 97 Room Air 97.6 73 11/17/17 12:47 98.8 81 20 140/63 96 Room Air 98.8 82 11/17/17 12:44 210.0 90 18 99 11/17/17 12:43 83 20 138/64 96 Room Air 82 11/17/17 12:40 210.0 93 18 98 11/17/17 12:35 90 20 154/90 96 Room Air 82 11/17/17 12:30 86 20 146/80 97 Nasal Cannula 2.0 82 11/17/17 12:25 98.9 86 20 142/56 97 Nasal Cannula 2.0 98.9 82 11/17/17 12:00 78 11/17/17 11:45 98.0 80 18 142/78 98 Room Air 98.0 Intake and Output 11/17/17 11/18/17 19:00 07:00 Intake Total 1010 ml 400 ml Output Total 1200 ml 2600 ml Balance -190 ml -2200 ml Intake Oral 400 ml IV Total 1010 ml Output Urine Total 1200 ml 2600 ml # Voids 2 # Bowel Movements 1 Laboratory Tests 11/18/17 06:10: White Blood Count 3.2L, Red Blood Count 3.18L, Hemoglobin 8.5L, Hematocrit 27.8L , Mean Corpuscular Volume 87, Mean Corpuscular Hemoglobin 26.7L, Mean Corpuscular Hemoglobin Concent 30.5L, Red Cell Distribution Width 19.4H, Platelet Count 65L, Mean Platelet Volume 11.0H, Neutrophils (%) (Auto) , Lymphocytes (%) (Auto) , Monocytes (%) (Auto) , Eosinophils (%) (Auto) , Basophils (%) (Auto) , Neutrophils % (Manual) [Pending], Lymphocytes % (Manual) [Pending], Platelet Estimate [Pending], Platelet Morphology [Pending], Prothrombin Time 12.8H, Prothromb Time International Ratio 1.2H, Activated Partial Thromboplast Time 35H, Sodium Level 136, Potassium Level 3.8, Chloride Level 101, Carbon Dioxide Level 28, Anion Gap 7, Blood Urea Nitrogen 8, Creatinine 0.9, Estimat Glomerular Filtration Rate > 60, Glucose Level 120H, Calcium Level 8.0L, Phosphorus Level 2.6, Magnesium Level 1.6L, Total Bilirubin 1.7H, Direct Bilirubin [Pending], Aspartate Amino Transf (AST/SGOT) 155H, Alanine Aminotransferase (ALT/SGPT) 64, Alkaline Phosphatase 92, Total Protein 7.7, Albumin 2.9L, Globulin 4.8, Albumin/Globulin Ratio 0.6L, Alpha Fetoprotein [Pending], Hepatitis A IgM Antibody [Pending], Hepatitis B Surface Antigen [ Pending], Hepatitis B Core IgM Antibody [Pending], Hepatitis C Antibody [Pending ] Height (Feet): 6 Height (Inches): 5.00 Weight (Pounds): 159 General Appearance: alert EENT: normal ENT inspection Neck: supple Cardiovascular: normal rate Respiratory/Chest: lungs clear Abdomen: normal bowel sounds, non tender, soft Extremities: non-tender MATTHEW MARTELL Nov 18, 2017 09:11
[2017-11-18] MEDS: Pantoprazole Inj IVP SCH (09:12)
[2017-11-18] MEDS: Sandostatin 500mcg in NS 500ml IV SCH (09:39)
[2017-11-18] MEDS ORDERED: Morphine Sulfate 2mg/ml Inj IVP SCH (11:15)
[2017-11-18 12:21] VITALS: BP 152/91
--- NOTE | 2017-11-18 12:21 | Pulmonology Progress Note ---
Assessment/Plan Problems: (1) UGI bleed (2) Alcoholic cirrhosis (3) Anemia (4) Esophageal varices (5) Cholelithiasis Assessment/Plan HIDA scan ordered US results di/w Radiolgoy h/h stable check electrolytes for EGD today prbc prn iv fluids check electrolytes. med/surg possible dc in am if h/h remains stable and HIDA Subjective ROS Limited/Unobtainable: No Interval Events: had EGD , didn't show any bleeding varices Allergies: Coded Allergies: CODEINE (Unverified Allergy, Unknown, 11/16/17) Objective Last 24 Hour Vital Signs Date Time Temp Pulse Resp B/P (MAP) Pulse Ox O2 Delivery O2 Flow Rate FiO2 11/18/17 08:13 97.9 77 20 142/75 96 Room Air 97.9 11/18/17 07:42 73 11/18/17 04:00 98.1 80 20 150/95 96 Room Air 98.1 80 11/18/17 04:00 73 11/18/17 00:00 97.9 80 18 147/86 94 Room Air 97.9 80 11/18/17 00:00 82 11/17/17 20:00 103 11/17/17 20:00 98.4 79 20 152/83 98 Room Air 98.4 79 11/17/17 16:00 76 11/17/17 15:41 97.6 73 21 153/86 97 Room Air 97.6 73 11/17/17 12:47 98.8 81 20 140/63 96 Room Air 98.8 82 11/17/17 12:44 210.0 90 18 99 11/17/17 12:43 83 20 138/64 96 Room Air 82 11/17/17 12:40 210.0 93 18 98 11/17/17 12:35 90 20 154/90 96 Room Air 82 11/17/17 12:30 86 20 146/80 97 Nasal Cannula 2.0 82 11/17/17 12:25 98.9 86 20 142/56 97 Nasal Cannula 2.0 98.9 82 Intake and Output 11/17/17 11/18/17 19:00 07:00 Intake Total 1010 ml 400 ml Output Total 1200 ml 2600 ml Balance -190 ml -2200 ml Intake Oral 400 ml IV Total 1010 ml Output Urine Total 1200 ml 2600 ml # Voids 2 # Bowel Movements 1 Objective General Appearance: cachetic Lines, tubes and drains: peripheral HEENT: normocephalic, atraumatic Neck: non-tender, normal alignment Respiratory/Chest: chest wall non-tender, lungs clear Breasts: no masses Cardiovascular/Chest: normal rate Abdomen: normal bowel sounds, non tender Genitourinary/Rectal: normal genital exam Extremities: normal range of motion, non-tender Skin Exam: normal pigmentation 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 Lymphatic: anterior cervical Laboratory Tests 11/18/17 06:10: White Blood Count 3.2L, Red Blood Count 3.18L, Hemoglobin 8.5L, Hematocrit 27.8L , Mean Corpuscular Volume 87, Mean Corpuscular Hemoglobin 26.7L, Mean Corpuscular Hemoglobin Concent 30.5L, Red Cell Distribution Width 19.4H, Platelet Count 65L, Mean Platelet Volume 11.0H, Neutrophils (%) (Auto) , Lymphocytes (%) (Auto) , Monocytes (%) (Auto) , Eosinophils (%) (Auto) , Basophils (%) (Auto) , Differential Total Cells Counted 100, Neutrophils % ( Manual) 65, Lymphocytes % (Manual) 25, Monocytes % (Manual) 6, Eosinophils % ( Manual) 4H, Basophils % (Manual) 0, Band Neutrophils 0, Platelet Estimate DecreasedL, Platelet Morphology Normal, Hypochromasia 1+, Anisocytosis 1+, Prothrombin Time 12.8H, Prothromb Time International Ratio 1.2H, Activated Partial Thromboplast Time 35H, Sodium Level 136, Potassium Level 3.8, Chloride Level 101, Carbon Dioxide Level 28, Anion Gap 7, Blood Urea Nitrogen 8, Creatinine 0.9, Estimat Glomerular Filtration Rate > 60, Glucose Level 120H, Calcium Level 8.0L, Phosphorus Level 2.6, Magnesium Level 1.6L, Total Bilirubin 1.7H, Direct Bilirubin 0.7H, Aspartate Amino Transf (AST/SGOT) 155H, Alanine Aminotransferase (ALT/SGPT) 64, Alkaline Phosphatase 92, Total Protein 7.7, Albumin 2.9L, Globulin 4.8, Albumin/Globulin Ratio 0.6L, Alpha Fetoprotein [ Pending], Hepatitis A IgM Antibody [Pending], Hepatitis B Surface Antigen [ Pending], Hepatitis B Core IgM Antibody [Pending], Hepatitis C Antibody [Pending ] Current Medications Medications (Trade) Dose Ordered Sig/Lazaro Route PRN Reason Start Time Stop Time Status Last Admin Dose Admin Al Hydroxide/Mg Hydroxide (Mylanta II) 30 ml Q6H PRN ORAL dyspepsia 11/16/17 19:45 12/16/17 19:44 Ceftriaxone Sodium 1 gm/ Dextrose 110 ml @ 220 mls/hr Q24H IVPB 11/17/17 13:00 11/24/17 12:59 11/17/17 14:08 Dextrose (Dextrose 50%) 25 ml STAT PRN IV HYPOGLYCEMIA 11/18/17 08:15 12/18/17 08:14 Dextrose (Dextrose 50%) 50 ml STAT PRN IV Hypoglycemia 11/18/17 08:15 12/16/17 19:44 Dextrose/Sodium Chloride 1,000 ml @ 100 mls/hr Q10H IV 11/16/17 19:36 12/16/17 19:35 11/18/17 01:40 Diphenhydramine HCl (Benadryl) 25 mg Q6H PRN ORAL Itching/Pruritis 11/16/17 19:45 12/16/17 19:44 Morphine Sulfate (Morphine Sulfate) 2 mg ONCE ONCE IVP 11/18/17 11:15 11/18/17 11:16 UNV Nitroglycerin (Ntg) 0.4 mg Q5M X 3 DOSES PRN SL Prn Chest Pain 11/16/17 19:45 12/16/17 19:44 Octreotide Acetate 500 mcg/ Sodium Chloride 500 ml @ 25 mls/hr Q20H IV 11/19/17 11:00 11/20/17 10:59 Ondansetron HCl (Zofran) 4 mg Q6H PRN IVP Nausea & Vomiting 11/16/17 19:45 12/16/17 19:44 Pantoprazole (Protonix) 40 mg EVERY 12 HOURS IVP 11/17/17 00:45 12/17/17 00:44 11/18/17 09:12 Polyethylene Glycol (Miralax) 17 gm HSPRN PRN ORAL Constipation 11/16/17 19:45 12/16/17 19:44 11/17/17 21:19 Propranolol HCl (Inderal) 10 mg Q8HR ORAL 11/18/17 14:00 12/18/17 13:59 Temazepam (Restoril) 15 mg HSPRN PRN ORAL Insomnia 11/16/17 19:45 11/23/17 19:44 11/17/17 21:13 Lisa Espana MD Nov 18, 2017 12:21
[2017-11-18] MEDS: cefTRIAXone 1 GM in D5W 110 ML IVPB SCH (12:49)
[2017-11-18] MEDS ORDERED: Propranolol 10mg tab ORAL SCH (14:00)
[2017-11-18 15:14] VITALS: BP 152/91
--- NOTE | 2017-11-18 16:01 | Consultation ---
History of Present Illness General Date patient seen: Nov 18, 2017 Chief Complaint: Gastrointestinal Bleed Reason for Consultation: cholecysititis Present Illness HPI 57 year old male with known heavy EtOH history and liver cirrhosis presented with hematemesis. Noted to have worsening cough recently and some bloody emesis. also noted blood in stools. anemia upon admission. recently had EGD which demonstrated varices. During work up was noted to have RUQ tenderness + Rice's, ultrasound with stones/sludge, elevated liver enzymes and bilirubin. Surgery called to evaluate abdominal pain and cholecystitis. Allergies: Coded Allergies: CODEINE (Unverified Allergy, Unknown, 11/16/17) Medication History Scheduled Multivitamins* (Multivitamins*), 1 TAB ORAL DAILY, (Reported) Patient History History Provided By: Medical Record, PMD Healthcare decision maker Resuscitation status Full Code Advanced Directive on File No Past Medical/Surgical History Past Medical/Surgical History: (1) Anemia (2) Alcoholic cirrhosis (3) UGI bleed (4) Cholelithiasis (5) Esophageal varices Review of Systems All Other Systems: negative except mentioned in HPI Physical Exam General Appearance: no apparent distress Lines, tubes and drains: peripheral HEENT: normocephalic Neck: normal inspection Respiratory/Chest: lungs clear, normal breath sounds, no respiratory distress, no accessory muscle use Cardiovascular/Chest: normal peripheral pulses Abdomen: soft, tender - +[place] , other - fluid shift, distended Extremities: no calf tenderness Skin Exam: warm/dry Neurologic: responsive Last 24 Hour Vital Signs Date Time Temp Pulse Resp B/P (MAP) Pulse Ox O2 Delivery O2 Flow Rate FiO2 11/18/17 15:14 81 152/91 11/18/17 12:21 97.9 81 20 152/91 96 Room Air 97.9 11/18/17 11:56 80 11/18/17 08:13 97.9 77 20 142/75 96 Room Air 97.9 11/18/17 07:42 73 11/18/17 04:00 98.1 80 20 150/95 96 Room Air 98.1 80 11/18/17 04:00 73 11/18/17 00:00 97.9 80 18 147/86 94 Room Air 97.9 80 11/18/17 00:00 82 11/17/17 20:00 103 11/17/17 20:00 98.4 79 20 152/83 98 Room Air 98.4 79 11/17/17 16:00 76 Intake and Output 11/17/17 11/18/17 19:00 07:00 Intake Total 1010 ml 400 ml Output Total 1200 ml 2600 ml Balance -190 ml -2200 ml Intake Oral 400 ml IV Total 1010 ml Output Urine Total 1200 ml 2600 ml # Voids 2 # Bowel Movements 1 Laboratory Tests Test 11/18/17 06:10 White Blood Count 3.2 K/UL (4.8-10.8) L Red Blood Count 3.18 M/UL (4.70-6.10) L Hemoglobin 8.5 G/DL (14.2-18.0) L Hematocrit 27.8 % (42.0-52.0) L Mean Corpuscular Volume 87 FL (80-99) Mean Corpuscular Hemoglobin 26.7 PG (27.0-31.0) L Mean Corpuscular Hemoglobin Concent 30.5 G/DL (32.0-36.0) L Red Cell Distribution Width 19.4 % (11.6-14.8) H Platelet Count 65 K/UL (150-450) L Mean Platelet Volume 11.0 FL (6.5-10.1) H Neutrophils (%) (Auto) % (45.0-75.0) Lymphocytes (%) (Auto) % (20.0-45.0) Monocytes (%) (Auto) % (1.0-10.0) Eosinophils (%) (Auto) % (0.0-3.0) Basophils (%) (Auto) % (0.0-2.0) Differential Total Cells Counted 100 Neutrophils % (Manual) 65 % (45-75) Lymphocytes % (Manual) 25 % (20-45) Monocytes % (Manual) 6 % (1-10) Eosinophils % (Manual) 4 % (0-3) H Basophils % (Manual) 0 % (0-2) Band Neutrophils 0 % (0-8) Platelet Estimate Decreased L Platelet Morphology Normal Hypochromasia 1+ Anisocytosis 1+ Prothrombin Time 12.8 SEC (9.30-11.50) H Prothromb Time International Ratio 1.2 (0.9-1.1) H Activated Partial Thromboplast Time 35 SEC (23-33) H Sodium Level 136 MMOL/L (136-145) Potassium Level 3.8 MMOL/L (3.5-5.1) Chloride Level 101 MMOL/L (98-107) Carbon Dioxide Level 28 MMOL/L (21-32) Anion Gap 7 mmol/L (5-15) Blood Urea Nitrogen 8 mg/dL (7-18) Creatinine 0.9 MG/DL (0.55-1.30) Estimat Glomerular Filtration Rate > 60 mL/min (>60) Glucose Level 120 MG/DL (74-106) H Calcium Level 8.0 MG/DL (8.5-10.1) L Phosphorus Level 2.6 MG/DL (2.5-4.9) Magnesium Level 1.6 MG/DL (1.8-2.4) L Total Bilirubin 1.7 MG/DL (0.2-1.0) H Direct Bilirubin 0.7 MG/DL (0.0-0.3) H Aspartate Amino Transf (AST/SGOT) 155 U/L (15-37) H Alanine Aminotransferase (ALT/SGPT) 64 U/L (12-78) Alkaline Phosphatase 92 U/L (46-116) Total Protein 7.7 G/DL (6.4-8.2) Albumin 2.9 G/DL (3.4-5.0) L Globulin 4.8 g/dL Albumin/Globulin Ratio 0.6 (1.0-2.7) L Alpha Fetoprotein Pending Hepatitis A IgM Antibody Pending Hepatitis B Surface Antigen Pending Hepatitis B Core IgM Antibody Pending Hepatitis C Antibody Pending Height (Feet): 6 Height (Inches): 5.00 Weight (Pounds): 159 Medications Current Medications Medications (Trade) Dose Ordered Sig/Lazaro Route PRN Reason Start Time Stop Time Status Last Admin Dose Admin Al Hydroxide/Mg Hydroxide (Mylanta II) 30 ml Q6H PRN ORAL dyspepsia 11/16/17 19:45 12/16/17 19:44 Ceftriaxone Sodium 1 gm/ Dextrose 110 ml @ 220 mls/hr Q24H IVPB 11/17/17 13:00 11/24/17 12:59 11/18/17 12:49 Dextrose (Dextrose 50%) 25 ml STAT PRN IV HYPOGLYCEMIA 11/18/17 08:15 12/18/17 08:14 Dextrose (Dextrose 50%) 50 ml STAT PRN IV Hypoglycemia 11/18/17 08:15 12/16/17 19:44 Dextrose/Sodium Chloride 1,000 ml @ 100 mls/hr Q10H IV 11/16/17 19:36 12/16/17 19:35 11/18/17 12:20 Diphenhydramine HCl (Benadryl) 25 mg Q6H PRN ORAL Itching/Pruritis 11/16/17 19:45 12/16/17 19:44 Magnesium Sulfate 100 ml @ 100 mls/hr Q1H IVPB 11/18/17 14:00 11/18/17 15:59 11/18/17 15:15 Morphine Sulfate (Morphine Sulfate) 2 mg ONCE IVP 11/18/17 11:15 11/18/17 23:59 Nitroglycerin (Ntg) 0.4 mg Q5M X 3 DOSES PRN SL Prn Chest Pain 11/16/17 19:45 12/16/17 19:44 Octreotide Acetate 500 mcg/ Sodium Chloride 500 ml @ 25 mls/hr Q20H IV 11/19/17 11:00 11/20/17 10:59 Ondansetron HCl (Zofran) 4 mg Q6H PRN IVP Nausea & Vomiting 11/16/17 19:45 12/16/17 19:44 Pantoprazole (Protonix) 40 mg EVERY 12 HOURS IVP 11/17/17 00:45 12/17/17 00:44 11/18/17 09:12 Polyethylene Glycol (Miralax) 17 gm HSPRN PRN ORAL Constipation 11/16/17 19:45 12/16/17 19:44 11/17/17 21:19 Propranolol HCl (Inderal) 10 mg Q8HR ORAL 11/18/17 14:00 12/18/17 13:59 11/18/17 15:14 Temazepam (Restoril) 15 mg HSPRN PRN ORAL Insomnia 11/16/17 19:45 11/23/17 19:44 11/17/17 21:13 Assessment/Plan Problem List: (1) Cholelithiasis Assessment & Plan: 57M with likely acute cholecystitis based on exam and findings. afebrile, HD stable, elevated liver enzymes, ultrasound as below. Unfortunately with history of liver cirrhosis. MELD score of 10. Evidence of hepatic cirrhosis Ascites, likely related to the above Cholelithiasis and gallbladder sludge. Gallbladder wall thickening and edema is likely related to the hepatic abnormality. However, given the finding of positive sonographic Rice's sign, the possibility of acute cholecystitis should also be considered. Consider nuclear medicine hepatobiliary scanning for further evaluation if there is high clinical suspicion Medical management of cholecystitis for now Pending HIDA results Abx Trend labs will follow with serial exams. may need cholecystectomy but high risk given liver cirrhosis. thank you for this consult. will follow with you. ICD Codes: K80.20 - Calculus of gallbladder without cholecystitis without obstruction SNOMED: [id number] Qualifiers: Qualified Codes: K80.00 - Calculus of gallbladder with acute cholecystitis without obstruction Status: stable Gerard Wright Nov 18, 2017 16:01
--- NOTE | 2017-11-18 16:20 | Diagnostic Imaging Report ---
Indication: Abdominal Pain Technique: 5.5 mCi of technetium 99 m-Choletec was injected intravenously. Planar imaging of the abdomen was then performed every 5 minutes up to 30 minutes and every 10 minutes up to one hour. Oblique views were also obtained. Findings: There is prompt uptake within the liver with poor washout of radiotracer from the liver on subsequent imaging. There is however excretion into the biliary ducts. Gallbladder activity is present indicating patency of the cystic duct. Bowel activity is demonstrated indicating patency of the common bile duct. Impression: Cystic duct and common bile duct patency demonstrated. Poor tracer washout from the liver. The reason for this is unknown and could be related to hepatocellular dysfunction. Please correlate clinically.
--- NOTE | 2017-11-19 08:13 | Diagnostic Imaging Report ---
APPROVED REPORT CPT Code: 03841 Present Symptoms Comments: BILATERAL LEGS PAIN. BILATERAL: Imaging reveals a patent deep venous system bilaterally. There is no evidence of thrombus within the femoral, popliteal or tibial segments. The greater saphenous veins are also within normal limits. Doppler indicates normal spontaneous flow within these segments.
[2017-11-19] MEDS ORDERED: SODIUM CHLORIDE IV SCH (11:00)
[2017-11-19] MEDS ORDERED: OCTREOTIDE ACETATE IV SCH (11:00)
--- NOTE | 2017-11-19 14:57 | Discharge Summary ---
Discharge Summary Hospital Course Date of Admission Nov 16, 2017 at 19:00 Date of Discharge Nov 18, 2017 at 18:02 Admitting Diagnosis UPPER G.I.BLEED,ETOH ABUSE HPI Enoc Ponce is a 57 year old male who was admitted on Nov 16, 2017 at 19 :00 for Upper Gastroinstetinal Bleed,Etoh Abuse Hospital Course [id number] Discharge Discharge Disposition Patient was discharged to Home () Meredith Cope NP Nov 19, 2017 14:56
--- NOTE | 2017-11-19 23:00 | Discharge Summary 2 SIG ---
DATE OF ADMISSION: 11/16/2017 DATE OF DISCHARGE: 11/18/2017 CONSULTANTS: 1. Gerard Wright M.D. 2. Lazaro Vallejo M.D. BRIEF HOSPITAL COURSE: The patient is a 57-year-old male with history of ETOH and liver disease, was brought in by EMS for complaints of hematemesis. The patient was reported to be having increased cough and had dark bloody stools. On evaluation at ED, was found to be anemic, hemoglobin was 8.2, hematocrit was 26 and platelet was 88. AST was elevated at 153. Bilirubin was normal. He was admitted to telemetry for evaluation of upper GI bleed and anemia. He was initially placed on NPO and was given IV fluids. He was followed by GI. He underwent upper endoscopy with banding x6. There was evidence of portal hypertensive gastropathy. He was kept on NPO and was given ceftriaxone for prevention of SBP. Octreotide drip was decreased. He was started on propranolol. Abdominal ultrasound showed evidence of hepatic cirrhosis with ascites, gallbladder sludge and cholelithiasis. There was gallbladder wall thickening and edema. Given findings of positive sonographic Rice sign, there was possibility of acute cholecystitis. He underwent HIDA scan, results showed cystic duct and common bile duct patency. There was poor tracer washout from the liver. Surgical consultation was done and recommended medical management. Diet was advanced. Hemoglobin and hematocrit was stable. No blood transfusion was needed. The patient was then cleared for discharge home. FINAL DIAGNOSES: 1. acute Upper GI bleed. 2. Alcoholic cirrhosis. 3. Anemia. 4. Cholelithiasis. 5. Portal hypertension. 6. Esophageal varices status post banding x6 during EGD. DISPOSITION: The patient was discharged home. DISCHARGE MEDICATIONS: Refer to medication list. DISCHARGE INSTRUCTIONS: Follow up with PCP in a week. Lisa Espana M.D. I have been assigned to dictate discharge summary on this account and I was not involved in the patient's management. Meredith Cope N.P. DR: CLIFF JOB#: [id number] CC: WALT
== END 2017-11-18 18:02 | disposition home or self-care (01) ==
LOC: EDBD 15:28 → EMR 16:30 → EDBEDREQ 17:32 → 2E 19:00 → EDBEDREQ 20:58 → 2E 11-17 02:29
PROC: 06L38CZ Occlusion of Esophageal Vein with Extraluminal Device, Via Natural or Artificial Opening Endoscopic (ICD-10-PCS; principal; 2017-11-17 12:08)
DX: K76.6 Portal hypertension (principal); I85.11 Secondary esophageal varices with bleeding; K70.30 Alcoholic cirrhosis of liver without ascites; D64.9 Anemia, unspecified; K80.20 Calculus of gallbladder without cholecystitis without obstruction; K31.89 Other diseases of stomach and duodenum
CPT/HCPCS: 36415; 76700; 78266; 80053; 82105; 82150; 82248; 83690; 83735; 84100; 85007; 85025; 85610; 85730; 86705; 86709; 86803; 86850; 86900; 86901; 87340; 93005; 93970; 99285; J3430